=== PATIENT | female | born 1950 | race Caucasian/White ===

== ENCOUNTER 2024-11-06 08:51 | Outpatient (AMB) | payer OTHER, SELFPAY ==
--- NOTE | 2024-11-06 08:55 | A.OFFVIS_ITS ---
Intake Visit Reasons: follow up Allergies No Known Allergies Allergy (Verified 10/30/24 07:52) Medication List - Last Reconciled 11/06/24 by Jacki Prater MD citalopram 20 mg PO DAILY diltiazem HCl CD 180 mg PO DAILY levothyroxine mcg PO onabotulinumtoxinA (Botox) units IM HPI Comments Details: This is 73-year-old woman with a history of hypothyroidism, hypertension and anxiety disorder who started to develop spontaneous head turning to the right about 15 years ago. She was diagnosed about 10 years ago with cervical dystonia in [place]. She has been getting Botox injections 200 units every 3-4 months. Her last Botox was 07/07/24. She was under the care of Dr. Law who has retired. She's leaving for [place] next week for 5 months and will get her next Botox a with her and wants to schedule the subsequent Botox for September 2024 in this office. Prior authorization for the Botox will be obtained. Her only complication with Botox sometimes is dysphagia. [facility] Medical History (Updated 11/06/24 @ 08:58 by Jacki Prater MD) Cervical dystonia Review of Systems Const Details: Sleep:? Difficulty getting to sleep?denies.? Difficulty maintaining sleep?denies? .? Urge to move legs?denies.? Teeth grinding?denies.? Shouting or Kicking during sleep?denies.? Abnormal behavior during sleep?denies.? Excessive sleep?denies.? Snoring?denies.? Daytime sleepiness?denies.? ?? General/Constitutional:? Change in appetite?denies.? Chills?denies.? Fatigue?denies.? Fever?denies .? Weight gain?denies.? Weight loss?denies.? ?? Ophthalmologic:? Blurred vision?denies.? Diminished visual acuity?denies.? ?? ENT:? Stuffiness?denies.? Decreased hearing?denies.? Dry mouth?denies.? Ear pain?denies.? Nosebleed?denies.? Ringing in the ears?denies.? Sinus pain?denies .? Sore throat?denies.? Swollen glands?denies.? ?? Endocrine:? Cold intolerance?denies.? Excessive thirst?denies.? Frequent urination? denies.? Heat intolerance?denies.? ?? Respiratory:? Shortness of breath?denies.? Chest pain?denies.? Cough?denies.? ?? Breast:? Breast lump?denies.? Nipple discharge?denies.? ?? Cardiovascular:? Chest pain at rest?denies.? Chest pain with exertion?denies.? Claudication?denies.? Dizziness?denies.? Fluid accumulation in the legs?denies.? Irregular heartbeat?denies.? Palpitations?denies.? ?? Gastrointestinal:? Abdominal pain?denies.? Constipation?denies.? Diarrhea?denies.? Difficulty swallowing?denies.? Heartburn?denies.? Nausea?denies.? Rectal bleeding?denies.? ?? Hematology:? Easy bruising?denies.? Prolonged bleeding?denies.? ?? Genitourinary:? Frequent urination?denies.? Urgency?denies.? Incontinence?denies.? Erectile Dysfunction?denies.? ?? Musculoskeletal:? Neck pain?admits.? Back pain?denies.? Muscle aches?denies.? Painful joints?denies.? Sciatica?denies.? Weakness?denies.? ?? Podiatric:? Difficulty walking?denies.? Foot numbness?denies.? ?? Neurologic:? Difficulty swallowing?denies.? Balance difficulty?denies.? Coordination? normal.? Difficulty speaking?denies.? Dizziness?denies.? Fainting?denies.? Gait abnormality?denies.? Headache?denies.? Loss of strength?denies.? Loss of use of extremity?denies.? Low back pain?denies.? Memory loss?denies.? Seizures?denies.? Tics?denies.? Tingling/Numbness?denies.? Transient loss of vision?denies.? Tremor?denies.? ?? Psychiatric:? Anxiety?denies.? Auditory/visual hallucinations?denies.? Delusions?denies .? Depressed mood?denies.? Stressors?denies.? Substance abuse?denies.? Suicidal thoughts?denies.? ?? Physical Exam Neuro Other: Neurological: ? Abnormal neurological findings:?Her default neck position is with the head turned to the right with slight downward chin deviation.? She has restriction of flexion, extension and lateral rotation, particularly in turning her head to the left side.? There is no dystonic tremor..? Mental Status:?alert and oriented X 3,?Normal attention, orientation, memory and affect.? Cranial Nerves:?Pupils are equal, round and reactive to light. Fundoscopy shows normal disc bilaterally. External occular muscles are intact. Visual villeda are full, no ptosis. Face is symmetrical, no facial weakness or droop. Facial sensations are normal. Tongue protrudes in midline. Palate elevates symmetrically. Shoulder shrugging is normal..? Motor Examination:?Normal muscle tone, bulk and strength,?No atrophy or fasciculations,?No drift of the extended upper extremities,?Deep tendon reflexes are 2+?,?Plantars are flexor?.? Motor Strength:? Proximal Muscles (out of 5): ?5 ? Distal Muscles (out of 5): ?5 ? Neck Flexors (out of 5): ?5 ? Neck Extensors (out of 5): ?5 ? Deltoid (out of 5): ?5 ? Biceps (out of 5): ?5 ? Triceps (out of 5): ?5 ? Serratus Anterior (out of 5): ?5 ? Wrist Extensors (out of 5): ?5 ? APB (out of 5): ?5 ? Finger Spread (out of 5): ?5 ? Ileopsoas (out of 5): ?5 ? Quadriceps (out of 5): ?5 ? Hamstrings (out of 5): ?5 ? Tibialis Anterior (out of 5): ?5 ? Peronei (out of 5): ?5 ? EDB (out of 5): ?5 ? Gastrocnemius (out of 5): ?5 ? Straight Leg Raising:?90 degrees.? Sensory Exam:?Normal light touch, temperature, pinprick, vibration and joint-position sensations?,?Rhomberg sign is absent.? Coordination:?no ataxia,?no titubation,?dybkhi-ej-uply, [id number] test and rapid alternating movements were normal.? Gait Exam:?Within normal limits.? Cerebellar Signs:?Hmndyq-[id number] and apnk-ow-bfrv is normal,?no dysdiadochokinesia?.? Extrapyramidal System:?Focal dystonia of the cervical spine with head turning to the right . No tremor, rigidity with normal facial expressions,?No bradykinesia, no bradyphrenia. Normal arm swing and posture. No propulsion or retropulsion.? Speech:?Normal,?no dysphasia or dysarthria..? Mini Mental Status Exam: ? Level of Consciousness:?Alert.? Orientation:?Knows correct year, month, date, day and season,?Knows correct city, county and state. Knows correct location and floor.? Registration:?Able to register 3 objects.? Attention:?Serial 7's performed accurately.? Recall:?Able to recall 3 out of 3 objects.? Language:?Normal spontaneous speech, fluency, repetition,naming, comprehension, reading and writing.? Total Score:?30/30.? General Examination: ? GENERAL APPEARANCE:?normal,?in no acute distress.? HEAD:?normocephalic,?atraumatic.? EYES:?sclera non-icteric,?conjunctiva clear.? EARS:?auditory canal clear,?tympanic membrane intact, clear.? NOSE:?no lesions.? ORAL CAVITY:?gums normal,?mucosa moist,?no lesions.? THROAT:?clear.? NECK/THYROID:?no cervical lymphadenopathy,?thyroid normal,?neck supple, full range of motion,?no carotid bruit.? SKIN:?no rashes,?no significant birthmarks.? HEART:?S1, S2 normal,?no murmurs.? LUNGS:?clear anteriorly and posteriorly.? CHEST:?no gross rib deformity,?clear to auscultation.? BACK:?normal exam of spine.? EXTREMITIES:?no edema.? PERIPHERAL PULSES:?normal.? PSYCH:?alert, oriented,?cognitive function intact,?cooperative with exam.? 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
--- NOTE | 2024-11-06 09:21 | A.OFFVIS_ITS ---
Intake Visit Reasons: follow up Allergies No Known Allergies Allergy (Verified 10/30/24 07:52) Medication List - Last Reconciled 11/06/24 by Jacki Prater MD citalopram 20 mg PO DAILY diltiazem HCl CD 180 mg PO DAILY levothyroxine mcg PO onabotulinumtoxinA (Botox) units IM [facility] Medical History (Updated 11/06/24 @ 08:58 by Jacki Prater MD) Cervical dystonia Assessment & Plan Assessment & Plan (1) Cervical dystonia: Code(s): G24.3 - Spasmodic torticollis Category: Medical Plan Scedule for Botox inj with EMG guidance Medications: New onabotulinumtoxinA (Botox) 200 units IM .90 days 200 ea 0RF Coding Level of Care Code Est Pt Level 4 (56993) Diagnoses Cervical dystonia G24.3
--- OUTSIDE RECORDS SUMMARY | 2024-11-06 09:41 | XMS_ITS | Clinical Summary ---
Author Organization [facility] [address] [facility] Address [address] [place] [address] Phone Care Team Providers Care Clinic Charge Nurse Name Role Phone Edna Verma MD Primary Care Provider [phone] Allergies No known active allergies Medications glucosamine/chond roitin/C/Angelo (GLUCOSAMINE 1500 COMPLEX ORAL) Take by mouth daily. Active calcium carbonate-vitamin D (Oyster Shell Calcium-Vit D3) 500 mg-5 mcg (200 unit) per tablet Take by mouth daily. Active multivit-min/iron /folic acid/K (ADULTS MULTIVITAMIN ORAL) Take by mouth daily. Active BIOTIN ORAL Take by mouth daily. Active elderberry fruit 350 mg capsule Take by mouth. Active dilTIAZem CD (CARDIZEM CD) 180 mg 24 hr capsule TAKE 1 CAPSULE BY MOUTH DAILY 90 capsule 1 5 Active citalopram (CeleXA) 20 mg tablet TAKE 1 TABLET BY MOUTH DAILY 90 tablet 1 5 Active levothyroxine (SYNTHROID, LEVOTHROID) 75 mcg tablet TAKE 1 TABLET BY MOUTH ONCE A DAY TUESDAY THROUGH TUESDAY, THEN 2 TABLETS ON TUESDAY AND SUNDAYS 114 tablet 5 Active TURMERIC ORAL Take by mouth. Active Active Problems Problem Noted Date Diagnosed Date Anxiety 12/29/2023 Cervical dystonia 12/29/2023 Overview (12/29/2023): Gets botox injections with [facility] and a doctor in [place] (Dr. Austin in [place]) See medically for injections with Dr. Valdez Hypothyroidism 12/29/2023 Assessment & Plan (02/09/2024 10:47 AM EST): Orders: Thyroid stimulating hormone with reflex to free t4 and free t3; Future Continue with levothyroxine, repeat TSH Essential hypertension 12/08/2017 Assessment & Plan (02/09/2024 10:47 AM EST): Orders: Comprehensive metabolic panel; Future Continue with diltiazem Macrocytosis without anemia 08/31/2017 Assessment & Plan (02/09/2024 10:47 AM EST): Orders: CBC and differential; Future Rosacea 02/04/2017 Scoliosis 01/18/2017 Encounters Date Type Department Care Team Description 09/27/2024 11:29 AM EDT - 09/27/2024 11:59 PM EDT Hospital Encounter XRAY - [address] [phone] H/O: pneumonia Discharge Disposition: Home or Self Care 09/27/2024 10:30 AM EDT Office Visit Adult Medicine [facility] - [address] [phone] Edna Verma MD H/O: pneumonia (Primary Dx); Essential hypertension; Anxiety; Acquired hypothyroidism 08/29/2024 12:19 PM EDT - 08/29/2024 11:59 PM EDT Hospital Encounter Radiology Department - [address] [phone] Encounter for screening mammogram for breast cancer Discharge Disposition: Home or Self Care from Last 3 Months Immunizations Name Administration Dates Next Due Influenza trivalent, 0.5mL ( Fluad) 65yo and older 12/06/2023 Influenza trivalent, 0.5mL ( Fluzone High-dose) 65yo and older 12/08/2022,12/04/2020,12/05/2018 Influenza trivalent, with pr eservative (Fluzone; Afluria) 6mo and older 12/05/2017 Influenza, Unspecified 12/09/2021,12/03/2016 Pfizer SARS-CoV-2 COVID-19, mRNA, LNP-S, preservative free 12/08/2022,12/09/2021,06/24/2021,12/21,05/29/2020,05/07/2020 Pneumococcal conjugate 13 va lent (Prevnar 13, PCV13) 2mo and older 08/23/2014 Pneumococcal polysaccharide 23 valent (Pneumovax 23) 2yo and older 03/01/2022,12/29/2015 Tdap Tetanus diptheria acell ular pertussis (Boostrix; Adacel) 7yo and older 06/02/2022,08/18/2012 Surgical History Surgery Date Site/Laterality Comments KNEE ARTHROSCOPY 2009 Right PROCEDURE: AK ARTHROSCOPY KNEE DIAGNOSTIC W/WO SYNOVIAL BX SPX COLONOSCOPY 04/12/2013 PROCEDURE: HISTORICAL COLONOSCOPY FINE NEEDLE ASPIRATION PROCEDURE: FINE NDLE ASPRTN W/IMAGING GUIDANCE; COMMENT: lt cyst Medical History Medical History Date Comments Hypothyroidism DX:Hypothyroidis m Cervical dystonia DX:Cervical dy stonia Anxiety DX:Anxiety Rosacea 02/04/2017 DX:Rosacea Arthritis Hypertension Family History Medical History Relation Name Comments Arthritis Mother Lavern Cox Breast cancer Other mat aunt Arthritis Sister 1 Claudia Chacon Diabetes Sister 1 Claudia Chacon 2 sisters wit h diabetes; 1 with [place] Lung cancer Sister 1 Claudia Chacon Arthritis Sister 2 Radha Alex Diabetes Sister 2 Radha Gueydan Colon cancer Neg Hx Heart attack Neg Hx Ovarian cancer Neg Hx Pancreatic cancer Neg Hx Prostate cancer Neg Hx Stroke Neg Hx Uterine cancer Neg Hx Relation Name Status Comments Mother Lavern Cox Other mat aunt Sister 1 Claudia Chacon Sister 2 Radha Johnson Social History Tobacco Use Types Packs/Day Years Used Date Smoking Tobacco: Former Cigarettes Q uit: 03/21/2001 Smokeless Tobacco: Never Tobacco Cessation:Counseling Given: Not Answered Alcohol Use Standard Drinks/Week Comments Yes 1 (1 standard drink = 0.6 oz pur e alcohol) Housing Instability Answer Date Recorde d Are you worried that in the next 2 months you may not have stable housing? No 02/07/2024 Food Access & Nutrition Answer Date Rec orded Do you have access to a vari ety of food including fruits and vegetables? Yes 02/07/2024 Access to Healthcare Answer Date Record ed Within the last 3 months, ho w many times did you visit the emergency department for your medical care? 0 02/07/2024 Health Literacy Answer Date Recorded How often do you need to hav e someone help you when you read instructions, pamphlets, or other written material from your doctor or pharmacy? Never 02/07/2024 Caregiver: How often do you need to have someone help you when you read instructions, pamphlets, or other written material from your doctor or pharmacy? Not on file 02/07/2024 Financial Risk Answer Date Recorded How hard is it for you to pa y for the very basics like food, housing, medical care, and air conditioning / heating? Not very hard 02/07/2024 Transportation Answer Date Recorded Has the lack of transportati on kept you from meetings, work, or from getting things needed for daily living? No Has the lack of transportati on kept you from medical appointments or from getting medications? No 02/07/2024 Social Isolation Answer Date Recorded How often do you feel lonely or isolated from th ose around you? Never 02/07/2024 Food Risk Answer Date Recorded Within the past 12 months we worried whether our food would run out before we got money to buy more. Never true 02/07/2024 Within the past 12 months th e food we bought just didn't last and we didn't have money to get more. Never true 02/07/2024 Dependent Care Answer Date Recorded Do you need help finding or paying for care for your loved ones. For example, child psychiatrist or elderly care for an older adult? No 02/07/2024 Education Answer Date Recorded Do you think completing more education or training, like finishing a GED, going to college, or learning a trade, would be helpful for you? No 02/07/2024 Employment and Income Answer Date Recor ded During the last four weeks, have you been actively looking for work? No 02/07/2024 Living Situation Answer Date Recorded What is your living situation? 1 04/08/2023 Comments No Sex and Gender Information Value Date Recorded Sex Assigned at Female 04/27/2024 2:42 PM EST Legal Sex Female 10:38 AM EST Gender Identity Female 04/27/2024 2:42 PM EST Sexual Orientation Not on file Obstetrics History Para Term AB IAB SAB Ectopic Multiple Livin g Live Births 1 1 1 1 Date Outcome GA Total Labor Labor/2nd/3rd Weight Sex Type Anes PTL Genesis A1 A5 Name Clin Term Last Filed Vital Signs Vital Sign Reading Time Taken Comments Blood Pressure 124/68 09/27/2024 10:40 AM EDT Pulse 72 09/27/2024 10:40 AM EDT Temperature 36.6 C (97.8 F) 09/27/2024 10:40 AM EDT Respiratory Rate 14 09/27/2024 10:40 AM EDT Oxygen Saturation 98% 09/27/2024 10:40 AM EDT Inhaled Oxygen Concentration - - Weight 64.9 kg (143 lb) 09/27/2024 10:40 AM EDT Height 154.9 cm (5' 1 ) 09/27/2024 10:40 AM EDT Body Mass Index 27.02 09/27/2024 10:40 AM EDT Plan of Treatment Upcoming Encounters Date Type Department Care Team (Late st Contact Info) Description 03/26/2025 8:00 AM EST Office Visit Adult Medicine [address] [phone] Edna Verma MD [address] [place] [id number] Health Maintenance Due Date Last Done Comments Zoster Vaccines (2 of 3) 10/17/2013 08/22/2013 COVID-19 Vaccine ( season) 2024 12/06/2023, 12/13/2022, 12/08/2022, Additional history exists Colorectal Cancer Screening: Stool Based Tests (FOBT/FIT) 11/03/2024 11/04/2023 Influenza Vaccine (#1) 2024 , 05/03/2023, 12/08/2022, Additional history exists Social Influencers of Health Screening 02/06/2025 02/07/2024 Medicare Annual Wellness Visit 02/08/2025 02/09/2024 Hypertension/CHF/CAD Annual BMP Blood Test 09/04/2025 09/04/2024, 02/10/2024, 08/12/2023, Additional history exists Falls Risk Assessment 09/27/2025 09/27/2024, 024 Osteoporosis Screening (Bone Density Screening) 01/16/2026 01/17/2024, 01/17/2024, 03/19/2020, Additional history exists Breast Cancer Screening 08/29/2026 08/30/19 25, 08/19/2023, 08/19/2023, Additional history exists RSV Immunization Adult Patients (1 - 1-dose 75+ series) 12/26/2026 Colorectal Cancer Screening: FIT-DNA (Cologuard) 09/28/2027 09/27/2024, 09/27/2024 Cholesterol Screening (Lipid Panel) 09/04/2029 09/04/2024, 02/10/2024, 08/12/2023, Additional history exists DTaP,Tdap,and Td Vaccines (3 - Td or Tdap) 06/02/2032 06/02/2022, 08/18/2012 Hepatitis C Screening Completed 12/31/2020 Pneumococcal Vaccine: 50+ Years Completed 03/01/2022, 12/29/2015, 08/23/2014 Depression Screening Completed 09/20/2024 HIB Vaccines Aged Out No longer eligi ble based on patient's age to complete this topic HPV Vaccines Aged Out No longer eligi ble based on patient's age to complete this topic Hepatitis A Vaccines Aged Out No long er eligible based on patient's age to complete this topic Hepatitis B Vaccines Aged Out No long er eligible based on patient's age to complete this topic IPV Vaccines Aged Out No longer eligi ble based on patient's age to complete this topic MMR Vaccines Aged Out No longer eligi ble based on patient's age to complete this topic Meningococcal ACWY Vaccine Aged Out N o longer eligible based on patient's age to complete this topic Meningococcal B Vaccine Aged Out No l onger eligible based on patient's age to complete this topic RSV Immunization Patients Under 20 months Aged Out No longer eligible based on patient's age to complete this topic Varicella Vaccines Aged Out No longer eligible based on patient's age to complete this topic Procedures Procedure Name Priority Date/Time Associated Diagnosis Comments XR CHEST 2 VIEWS Routine 09/27/2024 11:3 8 AM EDT H/O: pneumonia CBC WITH AUTO DIFFERENTIAL Routine 09/04/2024 8:57 AM EDT Essential hypertension COMPREHENSIVE METABOLIC PANEL Routine 09/04/2024 8:57 AM EDT Essential hypertension CBC AND DIFFERENTIAL Routine 09/04/2024 8:57 AM EDT Essential hypertension LIPID PANEL WITH REFLEX TO DIRECT LDL Routine 09/04/2024 8:57 AM EDT Essential hypertension THYROID STIMULATING HORMONE WITH REFLEX TO FREE T4 AND FREE T3 Routine 09/04/2024 8:57 AM EDT Acquired hypothyroidism MG MAMMO DIGITAL SCREENING W BRAEDEN BILAT Routine 08/29/2024 1:14 PM EDT Encounter for screening mammogram for breast cancer DXA BONE DENSITY STUDY 1+ SITS AXIAL SKEL Routine 01/17/2024 10:30 AM EDT Encounter for screening for osteoporosis HM STOOL BASED TEST Routine 11/04/2023 HEPATITIS C SCREENING Routine 12/31/2020 from Last 3 Months or Most Recently Relevant to Health Maintenance Results * XR Chest 2 Views (09/27/2024 11:38 AM EDT) Anatomical Region Laterality Modality Body Radiographic Zenaida ging 09/27/2024 5:42 PM EDT Impressions 09/27/2024 5:43 PM EDT Linear airspace opacities within the left lower lung zone. This could represent residual pneumonia versus atelectasis/fibrosis. -------- FINAL REPORT -------- Dictated By: Beronica Billings Dictated Date: 09/27/2024 17:42 ET Assigned Physician: Beronica Billings Reviewed and Electronically Signed By: Beronica Billings Signed Date: 09/27/2024 17:43 ET Workstation ID: [id number] Transcribed By: Self Edit Transcribed Date: 09/27/2024 17:42 ET Narrative 09/27/2024 5:43 PM EDT HISTORY: Pneumonia/ Bronchitis 1 month ago , looking for resolution TECHNIQUE: PA and lateral radiographs of the chest COMPARISON: None FINDINGS: There is a normal cardiomediastinal silhouette. Atherosclerosis of the thoracic aorta. Linear airspace opacities within the left lower lung zone. Severe degenerative changes of the thoracic spine. Procedure Note Beronica Billings MD - 09/27/2024 HISTORY: Pneumonia/ Bronchitis 1 month ago , looking for resolution TECHNIQUE: PA and lateral radiographs of the chest COMPARISON: None FINDINGS: There is a normal cardiomediastinal silhouette. Atherosclerosis of thethoracic aorta. Linear airspace opacities within the left lower lung zone.Severe degenerative changes of the thoracic spine. IMPRESSION: Linear airspace opacities within the left lower lung zone. This couldrepresent residual pneumonia versus atelectasis/fibrosis. -------- FINAL REPORT -------- Dictated By: Beronica Billings Dictated Date: 09/27/2024 17:42 ET Assigned Physician: Beronica Billings Reviewed and Electronically Signed By: Beronica Billings Signed Date: 09/27/2024 17:43 ET Workstation ID: [id number] Transcribed By: Self Edit Transcribed Date: 09/27/2024 17:42 ET us Edna Verma MD IMG XR PROCEDURES Final Result * Thyroid stimulating hormone with reflex to free t4 and free t3 (09/04/2024 8:57 AM EDT) TSH 0.75 0.40 - 4.00 mcIU/mL LAB CHEMISTRY METHOD 09/04/2024 2:44 PM EDT [facility] Blood Venous blood specimen / Unknown Venipuncture / Unknown 09/04/2024 8:57 AM EDT 09/04/2024 8:57 AM EDT us Edna Verma MD LAB BLOOD ORDERABLES Final Resul t [facility] [address] [place] [address], [place] [phone] * Lipid panel with reflex to direct LDL (09/04/2024 8:57 AM EDT) Cholesterol 189 0 - 200 mg/dL LAB CHEMISTRY METHOD 09/04/2024 2:04 PM EDT [facility] Triglycerides 72 0 - 150 mg/dL LAB CHEMISTRY METHOD 09/04/2024 2:04 PM EDT [facility] HDL 75 >=40 mg/dL LAB CHEMISTRY METHOD 09/04/2024 2:04 PM EDT [facility] LDL Calculated 100 0 - 100 mg/dL LAB CHEMISTRY METHOD 09/04/2024 2:04 PM EDT [facility] VLDL Cholesterol [place] 14.4 mg/dL LAB CHEMISTRY METHOD 09/04/2024 2:04 PM EDT [facility] Non HDL Chol. (LDL+VLDL) 114 <145 mg/dL LAB CHEMISTRY METHOD 09/04/2024 2:04 PM EDT [facility] Chol/HDL Ratio 2.5 0.0 - 4.4 LAB CHEMISTRY METHOD 09/04/2024 2:04 PM EDT [facility] Blood Venous blood specimen / Unknown Venipuncture / Unknown 09/04/2024 8:57 AM EDT 09/04/2024 8:57 AM EDT us Edna Verma MD LAB BLOOD ORDERABLES Final Resul t [facility] [address] [place] [address], [place] [phone] * (ABNORMAL) CBC auto differential (09/04/2024 8:57 AM EDT) Pathologist [facility] WBC 6.1 4.8 - 10.8 K/mcL LAB HEMETOLOGY METHOD 09/04/2024 10:54 AM [facility] RBC 4.60 3.80 - 4.80 M/mcL LAB HEMETOLOGY METHOD 09/04/2024 10:54 AM [facility] Hemoglobin 14.5 11.5 - 16.0 g/dL LAB HEMETOLOGY METHOD 09/04/2024 10:54 AM [facility] Hematocrit 45.2 35.0 - 47.0 % LAB HEMETOLOGY METHOD 09/04/2024 10:54 AM [facility] MCV 98.9(H) 79.0 - 98.0 FL LAB HEMETOLOGY METHOD 09/04/2024 10:54 AM [facility] MCH 31.7 27.0 - 32.0 pcg LAB HEMETOLOGY METHOD 09/04/2024 10:54 AM [facility] MCHC 32.1 32.0 - 37.0 g/dL LAB HEMETOLOGY METHOD 09/04/2024 10:54 AM [facility] RDW 13.3 11.0 - 15.0 % LAB HEMETOLOGY METHOD 09/04/2024 10:54 AM [facility] Platelets 300 130 - 400 K/mcL LAB HEMETOLOGY METHOD 09/04/2024 10:54 AM [facility] MPV 9.8 7.0 - 11.0 FL LAB HEMETOLOGY METHOD 09/04/2024 10:54 AM [facility] NRBC 0.0 <1.0 % LAB HEMETOLOGY METHOD 09/04/2024 10:54 AM [facility] NRBC Absolute 0.00 <0.10 K/mcL LAB HEMETOLOGY METHOD 09/04/2024 10:54 AM [facility] Neutrophils Relative 57.1 % LAB HEMETOLOGY METHOD 09/04/2024 10:54 AM [facility] Lymphocytes Relative 23.3 % LAB HEMETOLOGY METHOD 09/04/2024 10:54 AM [facility] Monocytes Relative 9.4 % LAB HEMETOLOGY METHOD 09/04/2024 10:54 AM [facility] Eosinophils Relative 9.0 % LAB HEMETOLOGY METHOD 09/04/2024 10:54 AM [facility] Basophils Relative 1.0 % LAB HEMETOLOGY METHOD 09/04/2024 10:54 AM [facility] Immature Granulocytes Relative 0.2 % LAB HEMETOLOGY METHOD 09/04/2024 10:54 AM [facility] Neutrophils Absolute 3.51 1.50 - 7.00 K/mcL LAB HEMETOLOGY METHOD 09/04/2024 10:54 AM [facility] Lymphocytes Absolute 1.43 1.00 - 5.00 K/mcL LAB HEMETOLOGY METHOD 09/04/2024 10:54 AM [facility] Monocytes Absolute 0.58 0.20 - 1.00 K/mcL LAB HEMETOLOGY METHOD 09/04/2024 10:54 AM [facility] Eosinophils Absolute 0.55(H) 0.00 - 0.50 K/mcL LAB HEMETOLOGY METHOD 09/04/2024 10:54 AM [facility] Basophils Absolute 0.06 0.00 - 0.20 K/mcL LAB HEMETOLOGY METHOD 09/04/2024 10:54 AM [facility] Immature Granulocytes Absolute 0.01 0.00 - 0.03 K/mcL LAB HEMETOLOGY METHOD 09/04/2024 10:54 AM [facility] Blood Venous blood specimen / Unknown Venipuncture / Unknown 09/04/2024 8:57 AM EDT 09/04/2024 8:57 AM EDT us Edna Verma MD LAB BLOOD ORDERABLES Final Resul t [facility] [address] [place] [address], [place] [phone] * Comprehensive metabolic panel (09/04/2024 8:57 AM EDT) Sodium 141 133 - 145 mmol/L LAB CHEMISTRY METHOD 09/04/2024 2:04 PM [facility] Potassium 4.3 3.5 - 5.5 mmol/L LAB CHEMISTRY METHOD 09/04/2024 2:04 PM [facility] Chloride 108 96 - 110 mmol/L LAB CHEMISTRY METHOD 09/04/2024 2:04 PM [facility] CO2 28 21 - 32 mmol/L LAB CHEMISTRY METHOD 09/04/2024 2:04 PM [facility] Anion Gap 5 3 - 11 LAB CHEMISTRY METHOD 09/04/2024 2:04 PM [facility] Glucose 87 70 - 100 mg/dL LAB CHEMISTRY METHOD 09/04/2024 2:04 PM [facility] BUN 12 5 - 25 mg/dL LAB CHEMISTRY METHOD 09/04/2024 2:04 PM [facility] Creatinine 0.66 0.50 - 1.10 mg/dL LAB CHEMISTRY METHOD 09/04/2024 2:04 PM [facility] eGFR 93 >=60 mL/min/1. 73m2 LAB CHEMISTRY METHOD 09/04/2024 2:04 PM [facility] Comment:Calculation based on the Chronic Kidney Disease Epidemiology Collaboration (CKD-EPI) equation refit without adjustment for race. BUN/Creatinine Ratio 18.2 LAB CHEMISTRY METHOD 09/04/2024 2:04 PM [facility] Calcium 9.5 8.5 - 10.5 mg/dL LAB CHEMISTRY METHOD 09/04/2024 2:04 PM EDT [facility] AST (SGOT) 21 10 - 42 unit/L LAB CHEMISTRY METHOD 09/04/2024 2:04 PM EDT [facility] ALT (SGPT) 26 10 - 60 unit/L LAB CHEMISTRY METHOD 09/04/2024 2:04 PM EDT [facility] Alkaline Phosphatase 81 42 - 121 unit/L LAB CHEMISTRY METHOD 09/04/2024 2:04 PM EDT [facility] Total Protein 7.0 6.0 - 8.0 g/dL LAB CHEMISTRY METHOD 09/04/2024 2:04 PM EDT [facility] Albumin 4.0 3.2 - 5.0 g/dL LAB CHEMISTRY METHOD 09/04/2024 2:04 PM EDT [facility] Total Bilirubin 0.8 0.0 - 1.4 mg/dL LAB CHEMISTRY METHOD 09/04/2024 2:04 PM EDT [facility] Blood Venous blood specimen / Unknown Venipuncture / Unknown 09/04/2024 8:57 AM EDT 09/04/2024 8:57 AM EDT us Edna Verma MD LAB BLOOD ORDERABLES Final Resul t [facility] [address] [place] [address], [place] [phone] * MG Mammo Digital Screening w Braeedn bilat (08/29/2024 1:14 PM EDT) Anatomical Region Laterality Modality Breast Bilateral Mammography 08/30/2024 7:53 AM EDT Impressions 08/30/2024 7:57 AM EDT Benign. BI-RADS CATEGORY: 1 - NEGATIVE RECOMMENDATION: Screening bilateral mammogram is recommended in 1 year. Mammo Location: [facility], [address] [place] [address], [id number], . -------- FINAL REPORT -------- Dictated By: Mary Guevara Dictated Date: 08/30/2024 07:53 ET Assigned Physician: Mary Guevara Reviewed and Electronically Signed By: Mary Guevara Signed Date: 08/30/2024 07:57 ET Workstation ID: [id number] Transcribed By: Self Edit Transcribed Date: 08/30/2024 07:53 ET Narrative 08/30/2024 7:57 AM EDT CLINICAL: 73 years old, Female, routine annual exam. COMPARISON: Mammograms dating back to 01/08/2015 the most recent of 08/19/2023. TECHNIQUE: Bilateral MLO and CC views were obtained digitally with 3-D mammogram (digital breast tomosynthesis). Computer-aided detection was utilized in evaluation of this exam (CAD). FINDINGS: There is no evidence of suspicious mass or architectural distortion. No worrisome calcifications are evident. There has been no significant change from prior exam(s). BREAST DENSITY: B - There are scattered areas of fibroglandular density. Procedure Note Mary Guevara MD - 08/30/2024 CLINICAL: 73 years old, Female, routine annual exam. COMPARISON: Mammograms dating back to 01/08/2015 the most recent of08/19/2023. TECHNIQUE: Bilateral MLO and CC views were obtained digitally with 3-Dmammogram (digital breast tomosynthesis). Computer-aided detection wasutilized in evaluation of this exam (CAD). FINDINGS: There is no evidence of suspicious mass or architectural distortion. Noworrisome calcifications are evident. There has been no significantchange from prior exam(s). BREAST DENSITY: B - There are scattered areas of fibroglandular density. IMPRESSION: Benign. BI-RADS CATEGORY: 1 - NEGATIVE RECOMMENDATION: Screening bilateral mammogram is recommended in 1 year. Mammo Location: [facility], [address] [place] [address], [id number], . -------- FINAL REPORT -------- Dictated By: Mary Guevara Dictated Date: 08/30/2024 07:53 ET Assigned Physician: Mary Guevara Reviewed and Electronically Signed By: Mary Guevara Signed Date: 08/30/2024 07:57 ET Workstation ID: [id number] Transcribed By: Self Edit Transcribed Date: 08/30/2024 07:53 ET us Edna Verma MD IMG BI PROCEDURES Final Result * DXA BONE DENSITY STUDY 1+ SITS AXIAL SKEL (01/17/2024 10:30 AM EDT) Anatomical Region Laterality Modality Bone Densitometr y 02/11/2023 9:50 AM EST Narrative 01/17/2024 7:53 PM EDT Clinical history: other osteoporosis Scans of the lumbar spine and hips were performed on a [employer] (formerly known as [employer])/[place] fan beam bone densitometer. Bone mineral density measurements and associated T and Z scores respectively are as follows: Lumbar Spine: L1-L4 BMD: 1.164 g/cm2 T-Score: 1.1 Z-Score: 3.3 Compared with the prior study dated 03/19/2020, the BMD reading has decreased which is not statistically significant Left Proximal Femur: Neck BMD: 0.702 g/cm2 T-Score: -1.3 Z-Score: 0.6 Total BMD: 1.022 g/cm2 T-Score: 0.7 Z-Score: 2.3 Compared with the prior study the mean BMD reading in the total left hip has increased which is not statistically significant Compared with standards for the young adult, lowest measured bone density places the patient in the W.H.O. osteopenic range. FRAX 10 year probability of major osteoporotic fracture: 9.9% FRAX 10 year probability of hip fracture: 1.4% Population: [place] () IMPRESSION: IMPRESSION: Osteopenia. The NOF guidelines recommend that FDA approved medical therapies be considered in postmenopausal women and men age >50 years with a: i. Hip or vertebral (clinical or morphometric) fracture ii. T score of < -2.5 at the spine or hip iii. 10 year fracture probability by FRAX of >3% for hip fracture, or >20% for major osteoporotic fracture PLEASE NOTE: W.H.O. classification is based on lowest measured density at the spine, femoral neck, or total hip.This classification has prognostic significance when applied to post menopausal women and older men. 1) The World Health Organization defines low BMD as follows: T-score Normal at or > -1 Osteopenia < -1 and > -2.5 Osteoporosis at or < -2.5 without fractures Established osteoporosis < -2.5 with fractures Procedure Note Beronica Billings MD - 01/21/2024 Clinical history: other osteoporosis Scans of the lumbar spine and hips were performed on a [employer] beam bone densitometer. Bone mineral density measurements and associated T and Z scoresrespectively are as follows: Lumbar Spine: L1-L4 BMD: 1.164 g/cm2 T-Score: 1.1 Z-Score: 3.3 Compared with the prior study dated 03/19/2020, the BMD reading hasdecreased which is not statistically significant Left Proximal Femur: Neck BMD: 0.702 g/cm2 T-Score: -1.3 Z-Score: 0.6 Total BMD: 1.022 g/cm2 T-Score: 0.7 Z-Score: 2.3 Compared with the prior study the mean BMD reading in the total left hiphas increased which is not statistically significant Compared with standards for the young adult, lowest measured bone densityplaces the patient in the W.H.O. osteopenic range. FRAX 10 year probability of major osteoporotic fracture: 9.9% FRAX 10 year probability of hip fracture: 1.4% Population: [place] () IMPRESSION: IMPRESSION: Osteopenia. The NOF guidelines recommend that FDA approved medical therapies beconsidered in postmenopausal women and men age >50 years with a: i. Hip or vertebral (clinical or morphometric) fracture ii. T score of < -2.5 at the spine or hip iii. 10 year fracture probability by FRAX of >3% for hip fracture, or >20%for major osteoporotic fracture PLEASE NOTE: W.H.O. classification is based on lowest measured density at the spine,femoral neck, or total hip.This classification has prognostic significance when applied to postmenopausal women and older men. 1) The World Health Organization defines low BMD as follows: T-score Normal at or > -1 Osteopenia < -1 and > -2.5 Osteoporosis at or < -2.5 withoutfractures Established osteoporosis < -2.5 with fractures Edna Verma MD IMG DXA PROCEDURES Final Result * Stool Based Tests (FOBT/FIT) (11/04/2023) [facility] Colorectal Cancer Screening: Stool Based Tests No interpretation , Abstracted Historical Provider HEALTH MAINTENANCE Final Result * Hepatitis C Screening (12/31/2020) [facility] Hepatitis C Screening Abstracted Historical Provider HEALTH MAINTENANCE Final Result from Last 3 Months or Most Recently Relevant to Health Maintenance Insurance [employer] [address] Care Teams Clinic Charge Nurse Relationship Specialty Start Date End Date Edna Verma MD [address] [place] [phone] PCP - General Internal Medicine 08/29/24
== END 2024-11-06 10:20 | disposition home or self-care (01) ==
LOC: HO.HSM 08:52
PROVIDERS: PCP Internal Medicine; Referring Provider Internal Medicine; Visit Provider Psychiatry & Neurology Neurology
DX: G24.3 Spasmodic torticollis (principal)
CPT/HCPCS: 99214

== ENCOUNTER 2024-11-14 14:41 | Outpatient (REF) | payer OTHER, SELFPAY ==
--- NOTE | 2024-11-14 | EMG_ITS ---
Botulinum toxin for Torticollis:? Consent:?After informed consent was obtained explaining risks, benefits, side-effects and alternatives, under aseptic precautions, the following areas were prepped and injected according to the following protocol.? Prep:? 200 units Botulinum Toxin lot number [id number]. Expiration 3. Serial number (12) [id number] was reconstituted in the usual manner with preservative-free normal saline.? Muscles & Units Injected:?160 units botox injected in 3 sites in left SCM ( 3x20),?20 units in the left levator scapulae, 20 units in the left trapezius, 30 units in the right splenius capitis and 10 units right trapezius.? Post-Procedure:?The patient tolerated the procedure well. There was no blood loss or adverse effect. The patient will make a follow-up appointment in 3-4 weeks.? SARAID
--- OUTSIDE RECORDS SUMMARY | 2024-11-14 16:02 | XMS_ITS | Clinical Summary ---
Author Organization [facility] [address] [facility] Address [address] [place] [address] Phone Care Team Providers Care Flanging Roll Operator Name Role Phone Edna Verma MD Primary Care Provider [phone] Allergies No known active allergies Medications glucosamine/chond [...] 12/29/2023 Overview (12/29/2023): Gets botox injections with [facility] and a doctor in [place] (Dr. Austin in [place]) See medically for injections with Dr. Valdez [...] 11:59 PM EDT Hospital Encounter XRAY - [address] [phone] H/O: pneumonia Discharge Disposition: Home or Self Care 09/27/2024 10:30 AM EDT Office Visit [facility] - [address] [phone] Edna Verma MD H/O: pneumonia (Primary Dx); Essential hypertension; Anxiety; Acquired hypothyroidism 08/29/2024 12:19 PM EDT - 08/29/2024 11:59 PM EDT Hospital Encounter Radiology Department - [address] [phone] Encounter for screening mammogram for breast cancer [...] Site/Laterality Comments KNEE ARTHROSCOPY 2009 Right PROCEDURE: MD ARTHROSCOPY KNEE DIAGNOSTIC W/WO SYNOVIAL BX SPX [...] cancer Other mat aunt Arthritis Sister 1 lCaudia Chacon Diabetes Sister 1 Claudia Chacon 2 sisters wit h diabetes; 1 with [place] Lung cancer Sister 1 Claudia Chacon Arthritis Sister 2 Radha Alex Diabetes Sister 2 Radha [place] Colon cancer Neg Hx Heart attack Neg [...] care for your loved ones. For example, assistant child care teacher or elderly care for an older adult? [...] 8:00 AM EST Office Visit Adult Medicine [address] [phone] Edna Verma MD [address] [place] [phone] Health Maintenance Due Date Last Done Comments [...] Signed Date: 09/27/2024 17:43 ET Workstation ID: [id number] Transcribed By: Self Edit Transcribed Date: 09/27/2024 [...] Signed Date: 09/27/2024 17:43 ET Workstation ID: [id number] Transcribed By: Self Edit Transcribed Date: 09/27/2024 17:42 ET us Edna Verma MD IMG XR PROCEDURES Final Result * Thyroid stimulating hormone with reflex to free t4 and free t3 (09/04/2024 8:57 AM EDT) TSH 0.75 0.40 - 4.00 mcIU/mL LAB CHEMISTRY METHOD 09/04/2024 2:44 PM EDT [facility] Blood Venous blood specimen / Unknown Venipuncture / Unknown 09/04/2024 8:57 AM EDT 09/04/2024 8:57 AM EDT us Edna Verma MD LAB BLOOD ORDERABLES Final Resul t [facility] [address] [place] [address], [place] [phone] * Lipid panel with reflex to direct LDL (09/04/2024 8:57 AM EDT) Cholesterol 189 0 - 200 mg/dL LAB CHEMISTRY METHOD 09/04/2024 2:04 PM EDT [facility] Triglycerides 72 0 - 150 mg/dL LAB CHEMISTRY METHOD 09/04/2024 2:04 PM EDT [facility] HDL 75 >=40 mg/dL LAB CHEMISTRY METHOD 09/04/2024 2:04 PM EDT [facility] LDL Calculated 100 0 - 100 mg/dL LAB CHEMISTRY METHOD 09/04/2024 2:04 PM EDT [facility] VLDL Cholesterol [place] 14.4 mg/dL LAB CHEMISTRY METHOD 09/04/2024 2:04 PM EDT [facility] Non HDL Chol. (LDL+VLDL) 114 <145 mg/dL LAB CHEMISTRY METHOD 09/04/2024 2:04 PM EDT [facility] Chol/HDL Ratio 2.5 0.0 - 4.4 LAB CHEMISTRY METHOD 09/04/2024 2:04 PM EDT [facility] Blood Venous blood specimen / Unknown Venipuncture / Unknown 09/04/2024 8:57 AM EDT 09/04/2024 8:57 AM EDT us Edna Verma MD LAB BLOOD ORDERABLES Final Resul t [facility] [address] [place] [address], [place] [phone] * (ABNORMAL) CBC auto differential (09/04/2024 8:57 AM EDT) Pathologist [facility] WBC 6.1 4.8 - 10.8 K/mcL LAB HEMETOLOGY METHOD 09/04/2024 10:54 AM [facility] RBC 4.60 3.80 - 4.80 M/mcL LAB HEMETOLOGY METHOD 09/04/2024 10:54 AM [facility] Hemoglobin 14.5 11.5 - 16.0 g/dL LAB HEMETOLOGY METHOD 09/04/2024 10:54 AM [facility] Hematocrit 45.2 35.0 - 47.0 % LAB HEMETOLOGY METHOD 09/04/2024 10:54 AM [facility] MCV 98.9(H) 79.0 - 98.0 FL LAB HEMETOLOGY METHOD 09/04/2024 10:54 AM [facility] MCH 31.7 27.0 - 32.0 pcg LAB HEMETOLOGY METHOD 09/04/2024 10:54 AM [facility] MCHC 32.1 32.0 - 37.0 g/dL LAB HEMETOLOGY METHOD 09/04/2024 10:54 AM [facility] RDW 13.3 11.0 - 15.0 % LAB HEMETOLOGY METHOD 09/04/2024 10:54 AM [facility] Platelets 300 130 - 400 K/mcL LAB HEMETOLOGY METHOD 09/04/2024 10:54 AM [facility] MPV 9.8 7.0 - 11.0 FL LAB HEMETOLOGY METHOD 09/04/2024 10:54 AM [facility] NRBC 0.0 <1.0 % LAB HEMETOLOGY METHOD 09/04/2024 10:54 AM [facility] NRBC Absolute 0.00 <0.10 K/mcL LAB HEMETOLOGY METHOD 09/04/2024 10:54 AM [facility] Neutrophils Relative 57.1 % LAB HEMETOLOGY METHOD 09/04/2024 10:54 AM [facility] Lymphocytes Relative 23.3 % LAB HEMETOLOGY METHOD 09/04/2024 10:54 AM [facility] Monocytes Relative 9.4 % LAB HEMETOLOGY METHOD 09/04/2024 10:54 AM [facility] Eosinophils Relative 9.0 % LAB HEMETOLOGY METHOD 09/04/2024 10:54 AM [facility] Basophils Relative 1.0 % LAB HEMETOLOGY METHOD 09/04/2024 10:54 AM [facility] Immature Granulocytes Relative 0.2 % LAB HEMETOLOGY METHOD 09/04/2024 10:54 AM [facility] Neutrophils Absolute 3.51 1.50 - 7.00 K/mcL LAB HEMETOLOGY METHOD 09/04/2024 10:54 AM [facility] Lymphocytes Absolute 1.43 1.00 - 5.00 K/mcL LAB HEMETOLOGY METHOD 09/04/2024 10:54 AM [facility] Monocytes Absolute 0.58 0.20 - 1.00 K/mcL LAB HEMETOLOGY METHOD 09/04/2024 10:54 AM [facility] Eosinophils Absolute 0.55(H) 0.00 - 0.50 K/mcL LAB HEMETOLOGY METHOD 09/04/2024 10:54 AM [facility] Basophils Absolute 0.06 0.00 - 0.20 K/mcL LAB HEMETOLOGY METHOD 09/04/2024 10:54 AM [facility] Immature Granulocytes Absolute 0.01 0.00 - 0.03 K/mcL LAB HEMETOLOGY METHOD 09/04/2024 10:54 AM [facility] Blood Venous blood specimen / Unknown Venipuncture / Unknown 09/04/2024 8:57 AM EDT 09/04/2024 8:57 AM EDT us Edna Verma MD LAB BLOOD ORDERABLES Final Resul t [facility] [address] [place] [address], [place] [phone] * Comprehensive metabolic panel (09/04/2024 8:57 AM EDT) Sodium 141 133 - 145 mmol/L LAB CHEMISTRY METHOD 09/04/2024 2:04 PM [facility] Potassium 4.3 3.5 - 5.5 mmol/L LAB CHEMISTRY METHOD 09/04/2024 2:04 PM [facility] Chloride 108 96 - 110 mmol/L LAB CHEMISTRY METHOD 09/04/2024 2:04 PM [facility] CO2 28 21 - 32 mmol/L LAB CHEMISTRY METHOD 09/04/2024 2:04 PM [facility] Anion Gap 5 3 - 11 LAB CHEMISTRY METHOD 09/04/2024 2:04 PM [facility] Glucose 87 70 - 100 mg/dL LAB CHEMISTRY METHOD 09/04/2024 2:04 PM [facility] BUN 12 5 - 25 mg/dL LAB CHEMISTRY METHOD 09/04/2024 2:04 PM [facility] Creatinine 0.66 0.50 - 1.10 mg/dL LAB CHEMISTRY METHOD 09/04/2024 2:04 PM [facility] eGFR 93 >=60 mL/min/1. 73m2 LAB CHEMISTRY METHOD 09/04/2024 2:04 PM [facility] Comment:Calculation based on the Chronic Kidney Disease Epidemiology Collaboration (CKD-EPI) equation refit without adjustment for race. BUN/Creatinine Ratio 18.2 LAB CHEMISTRY METHOD 09/04/2024 2:04 PM [facility] Calcium 9.5 8.5 - 10.5 mg/dL LAB CHEMISTRY METHOD 09/04/2024 2:04 PM EDT [facility] AST (SGOT) 21 10 - 42 unit/L LAB CHEMISTRY METHOD 09/04/2024 2:04 PM EDT [facility] ALT (SGPT) 26 10 - 60 unit/L LAB CHEMISTRY METHOD 09/04/2024 2:04 PM EDT [facility] Alkaline Phosphatase 81 42 - 121 unit/L LAB CHEMISTRY METHOD 09/04/2024 2:04 PM EDT [facility] Total Protein 7.0 6.0 - 8.0 g/dL LAB CHEMISTRY METHOD 09/04/2024 2:04 PM EDT [facility] Albumin 4.0 3.2 - 5.0 g/dL LAB CHEMISTRY METHOD 09/04/2024 2:04 PM EDT [facility] Total Bilirubin 0.8 0.0 - 1.4 mg/dL LAB CHEMISTRY METHOD 09/04/2024 2:04 PM EDT [facility] Blood Venous blood specimen / Unknown Venipuncture / Unknown 09/04/2024 8:57 AM EDT 09/04/2024 8:57 AM EDT us Edna Verma MD LAB BLOOD ORDERABLES Final Resul t [facility] [address] [place] [address], [place] [phone] * MG Mammo Digital Screening w Braeden bilat (08/29/2024 1:14 PM EDT) Anatomical Region Laterality Modality Breast Bilateral Mammography 08/30/2024 7:53 AM EDT Impressions 08/30/2024 7:57 AM EDT Benign. BI-RADS CATEGORY: 1 - NEGATIVE RECOMMENDATION: Screening bilateral mammogram is recommended in 1 year. Mammo Location: [facility], [address] [place] [address], [id number], . -------- FINAL REPORT -------- Dictated By: Mary Guevara Dictated Date: 08/30/2024 07:53 ET Assigned Physician: Mary Guevara Reviewed and Electronically Signed By: Mary Guevara Signed Date: 08/30/2024 07:57 ET Workstation ID: [id number] Transcribed By: Self Edit Transcribed Date: 08/30/2024 [...] is recommended in 1 year. Mammo Location: [facility], [address] [place] [address], [id number], . -------- FINAL REPORT -------- Dictated By: Mary Guevara Dictated Date: 08/30/2024 07:53 ET Assigned Physician: Mary Guevara Reviewed and Electronically Signed By: Mary Guevara Signed Date: 08/30/2024 07:57 ET Workstation ID: [id number] Transcribed By: Self Edit Transcribed Date: 08/30/2024 07:53 ET us Edna Verma MD IMG BI PROCEDURES Final Result * DXA BONE DENSITY STUDY 1+ SITS AXIAL SKEL (01/17/2024 10:30 AM EDT) Anatomical Region Laterality Modality Bone Densitometr y 02/11/2023 9:50 AM EST Narrative 01/17/2024 7:53 PM EDT Clinical history: other osteoporosis Scans of the lumbar spine and hips were performed on a [employer] fan beam bone densitometer. Bone mineral density [...] spine and hips were performed on a [employer] beam bone densitometer. Bone mineral density measurements [...] Result * Stool Based Tests (FOBT/FIT) (11/04/2023) [facility] Colorectal Cancer Screening: Stool Based Tests No interpretation , Abstracted Historical Provider HEALTH MAINTENANCE Final Result * Hepatitis C Screening (12/31/2020) [facility] Hepatitis C Screening Abstracted Historical Provider HEALTH MAINTENANCE Final Result from Last 3 Months or Most Recently Relevant to Health Maintenance Insurance [employer] MEDICARE Care Teams Flanging Roll Operator Relationship Specialty Start Date End Date Edna Verma MD [address] [place] [id number] PCP - General Internal Medicine 08/29/24
== END 2024-11-14 14:42 | disposition home or self-care (01) ==
LOC: HO.NEURO 14:41
PROVIDERS: PCP Internal Medicine; Visit Provider Psychiatry & Neurology Neurology
DX: G24.8 Other dystonia (principal)
CPT/HCPCS: 64616; 95874

== ENCOUNTER → 2024-11-14 15:00 | Outpatient (BNV) | payer OTHER, SELFPAY | PROVIDERS: PCP Internal Medicine; Visit Provider Psychiatry & Neurology Neurology | DX: G24.3 Spasmodic torticollis (principal) | CPT/HCPCS: 64616 ==

== ENCOUNTER 2025-01-08 08:31 | Outpatient (AMB) | payer OTHER, SELFPAY ==
--- NOTE | 2025-01-08 09:24 | A.OFFVIS_ITS ---
Intake Visit Reasons: 2m after botox Allergies No Known Allergies Allergy (Verified 10/30/24 07:52) Medication List - Last Reconciled 01/08/25 by Jacki Prater MD citalopram 20 mg PO DAILY diltiazem HCl CD 180 mg PO DAILY levothyroxine mcg PO onabotulinumtoxinA (Botox) 200 units IM .90 days HPI Comments Details: 2 months s/p Botox 11/06/24 with good results and no dysphagia. She has a history of hypothyroidism, hypertension and anxiety disorder who started to develop spontaneous head turning to the right about 15 years ago. She was diagnosed about 10 years ago with cervical dystonia in [place]. She has been getting Botox injections 200 units every 3-4 months. Her last Botox was 07/07/24. She was under the care of Dr. Law who has retired. She's leaving for [place] next week for 5 months and will get her next Botox a with her and wants to schedule the subsequent Botox for September 2024 in this office. Prior authorization for the Botox will be obtained. Her only complication with Botox sometimes is dysphagia. [facility] Medical History (Updated 11/06/24 @ 08:58 by Jacki Prater MD) Cervical dystonia Review of Systems Const Details: Sleep:? Difficulty getting to sleep?denies.? Difficulty maintaining sleep?denies? .? Urge to move legs?denies.? Teeth grinding?denies.? Shouting or Kicking during sleep?denies.? Abnormal behavior during sleep?denies.? Excessive sleep?denies.? Snoring?denies.? Daytime sleepiness?denies.? ?? General/Constitutional:? Change in appetite?denies.? Chills?denies.? Fatigue?denies.? Fever?denies .? Weight gain?denies.? Weight loss?denies.? ?? Ophthalmologic:? Blurred vision?denies.? Diminished visual acuity?denies.? ?? ENT:? Stuffiness?denies.? Decreased hearing?denies.? Dry mouth?denies.? Ear pain?denies.? Nosebleed?denies.? Ringing in the ears?denies.? Sinus pain?denies .? Sore throat?denies.? Swollen glands?denies.? ?? Endocrine:? Cold intolerance?denies.? Excessive thirst?denies.? Frequent urination? denies.? Heat intolerance?denies.? ?? Respiratory:? Shortness of breath?denies.? Chest pain?denies.? Cough?denies.? ?? Breast:? Breast lump?denies.? Nipple discharge?denies.? ?? Cardiovascular:? Chest pain at rest?denies.? Chest pain with exertion?denies.? Claudication?denies.? Dizziness?denies.? Fluid accumulation in the legs?denies.? Irregular heartbeat?denies.? Palpitations?denies.? ?? Gastrointestinal:? Abdominal pain?denies.? Constipation?denies.? Diarrhea?denies.? Difficulty swallowing?denies.? Heartburn?denies.? Nausea?denies.? Rectal bleeding?denies.? ?? Hematology:? Easy bruising?denies.? Prolonged bleeding?denies.? ?? Genitourinary:? Frequent urination?denies.? Urgency?denies.? Incontinence?denies.? Erectile Dysfunction?denies.? ?? Musculoskeletal:? Neck pain?admits.? Back pain?denies.? Muscle aches?denies.? Painful joints?denies.? Sciatica?denies.? Weakness?denies.? ?? Podiatric:? Difficulty walking?denies.? Foot numbness?denies.? ?? Neurologic:? Difficulty swallowing?denies.? Balance difficulty?denies.? Coordination? normal.? Difficulty speaking?denies.? Dizziness?denies.? Fainting?denies.? Gait abnormality?denies.? Headache?denies.? Loss of strength?denies.? Loss of use of extremity?denies.? Low back pain?denies.? Memory loss?denies.? Seizures?denies.? Tics?denies.? Tingling/Numbness?denies.? Transient loss of vision?denies.? Tremor?denies.? ?? Psychiatric:? Anxiety?denies.? Auditory/visual hallucinations?denies.? Delusions?denies .? Depressed mood?denies.? Stressors?denies.? Substance abuse?denies.? Suicidal thoughts?denies.? ?? Physical Exam Neuro Other: Neurological: ? Abnormal neurological findings:?Her default neck position is with the head turned to the right with slight downward chin deviation.? She has restriction of flexion, extension and lateral rotation, particularly in turning her head to the left side.? There is no dystonic tremor..? Mental Status:?alert and oriented X 3,?Normal attention, orientation, memory and affect.? Cranial Nerves:?Pupils are equal, round and reactive to light. Fundoscopy shows normal disc bilaterally. External occular muscles are intact. Visual villeda are full, no ptosis. Face is symmetrical, no facial weakness or droop. Facial sensations are normal. Tongue protrudes in midline. Palate elevates symmetrically. Shoulder shrugging is normal..? Motor Examination:?Normal muscle tone, bulk and strength,?No atrophy or fasciculations,?No drift of the extended upper extremities,?Deep tendon reflexes are 2+?,?Plantars are flexor?.? Motor Strength:? Proximal Muscles (out of 5): ?5 ? Distal Muscles (out of 5): ?5 ? Neck Flexors (out of 5): ?5 ? Neck Extensors (out of 5): ?5 ? Deltoid (out of 5): ?5 ? Biceps (out of 5): ?5 ? Triceps (out of 5): ?5 ? Serratus Anterior (out of 5): ?5 ? Wrist Extensors (out of 5): ?5 ? APB (out of 5): ?5 ? Finger Spread (out of 5): ?5 ? Ileopsoas (out of 5): ?5 ? Quadriceps (out of 5): ?5 ? Hamstrings (out of 5): ?5 ? Tibialis Anterior (out of 5): ?5 ? Peronei (out of 5): ?5 ? EDB (out of 5): ?5 ? Gastrocnemius (out of 5): ?5 ? Straight Leg Raising:?90 degrees.? Sensory Exam:?Normal light touch, temperature, pinprick, vibration and joint-position sensations?,?Rhomberg sign is absent.? Coordination:?no ataxia,?no titubation,?pvrlvb-aq-ttyi, fhnc-ifiw-qers test and rapid alternating movements were normal.? Gait Exam:?Within normal limits.? Cerebellar Signs:?Mnqdgd-xu-ydqj and szyv-re-ogod is normal,?no dysdiadochokinesia?.? Extrapyramidal System:?Focal dystonia of the cervical spine with head turning to the right . No tremor, rigidity with normal facial expressions,?No bradykinesia, no bradyphrenia. Normal arm swing and posture. No propulsion or retropulsion.? Speech:?Normal,?no dysphasia or dysarthria..? Mini Mental Status Exam: ? Level of Consciousness:?Alert.? Orientation:?Knows correct year, month, date, day and season,?Knows correct city, county and state. Knows correct location and floor.? Registration:?Able to register 3 objects.? Attention:?Serial 7's performed accurately.? Recall:?Able to recall 3 out of 3 objects.? Language:?Normal spontaneous speech, fluency, repetition,naming, comprehension, reading and writing.? Total Score:?30/30.? General Examination: ? GENERAL APPEARANCE:?normal,?in no acute distress.? HEAD:?normocephalic,?atraumatic.? EYES:?sclera non-icteric,?conjunctiva clear.? EARS:?auditory canal clear,?tympanic membrane intact, clear.? NOSE:?no lesions.? ORAL CAVITY:?gums normal,?mucosa moist,?no lesions.? THROAT:?clear.? NECK/THYROID:?no cervical lymphadenopathy,?thyroid normal,?neck supple, full range of motion,?no carotid bruit.? SKIN:?no rashes,?no significant birthmarks.? HEART:?S1, S2 normal,?no murmurs.? LUNGS:?clear anteriorly and posteriorly.? CHEST:?no gross rib deformity,?clear to auscultation.? BACK:?normal exam of spine.? EXTREMITIES:?no edema.? PERIPHERAL PULSES:?normal.? PSYCH:?alert, oriented,?cognitive function intact,?cooperative with exam.? 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
== END 2025-01-08 10:11 | disposition home or self-care (01) ==
LOC: HO.HSM 08:32
PROVIDERS: PCP Internal Medicine; Visit Provider Psychiatry & Neurology Neurology
DX: G24.3 Spasmodic torticollis (principal)
CPT/HCPCS: 99214

== ENCOUNTER → 2025-02-27 13:46 | Outpatient (BNV) | payer OTHER, SELFPAY | PROVIDERS: PCP Internal Medicine; Visit Provider Psychiatry & Neurology Neurology | DX: G24.3 Spasmodic torticollis (principal) | CPT/HCPCS: 64616; 95874 ==

== ENCOUNTER 2025-02-27 14:48 | Outpatient (REF) | payer OTHER, SELFPAY ==
--- NOTE | 2025-02-27 13:46 | EMG_ITS ---
Chief complaint: Cervical Dystonia Procedure done by:?Dr Prater Procedure done: EM[facility] Botox [facility] [place] [address] [facility]
--- OUTSIDE RECORDS SUMMARY | 2025-02-27 23:13 | XMS_ITS | Encounter Summary ---
Author Organization [facility] Prior to 01/20/2024 Address [address] [place] [address] Care Team Providers Care Manager Case Management Name Role Phone Milla Person MD Primary Care Provider Chanda vailaDave Gutierres PA-C Primary Care Provider Unavail able Edna Verma MD Primary Care Provider [phone] Reason for Visit * Reason Onset Date Comments TEST RESULTS 12/12/2017 Encounter Details Date Type Department Care Team Description 12/12/2017 Pt. Non Urgent Medical Question Medicine/Pediatrics - [address] [address] Dave Chung PA-C Social History Tobacco Use Types Packs/Day Years Used Date Smoking Tobacco: Former Cigarettes 1 30 Q uit: 2001 Smokeless Tobacco: Never Alcohol Use Standard Drinks/Week Comments No 0 (1 standard drink = 0.6 oz pur e alcohol) Sex Assigned at Date Recorded Female 10/02/2020 9:36 AM E DT Job Start Date Occupation Industry Not on file Not on file Not on file documented as of this encounter Progress Notes * Stephanie Martines L.P.N. - 12/12/2017 11:26 AM EDTFrom: Donna Samuels To: Dave Chung PA-C Sent: 12/12/2017 11:16 AM EDT Subject: Levothyroxine Good Morning - Thank you for your recent inquiry regarding my blood test results. I just wanted to let you know that I have been taking my levothyroxine on a daily basis. Please send any prescriptions to the [facility] in [place], [place]. Also, would having a slight increase in thyroid hormone levels have anything to do with the either skipped or rapid heart beat on occasion. Thank you! documented in this encounter Plan of Treatment Not on file documented as of this encounter Visit Diagnoses Not on filedocumented in this encounter Care Teams Manager Case Management Relationship Specialty Start Date End Date Milla Person MD PCP - General Internal Medicine 10/21/16 1 Dave Chung PA-C PCP - General Med/Peds 11/13/20 01/06/22 Edna Verma MD [address] [place] [address] PCP - General Internal Medicine 01/07/22 documented as of this encounter
--- OUTSIDE RECORDS SUMMARY | 2025-02-27 23:13 | XMS_ITS | Encounter Summary ---
Author Organization [facility] Prior to 01/20/2024 Address [address] [place] [address] Care Team Providers Care Manager Strategic Development Name Role Phone Milla Person MD Primary Care Provider Chanda vailable Dave Chung PA-C Primary Care Provider Unavail able Edna Verma MD Primary Care Provider [phone] Encounter Details Date Type Department Care Team Description 01/20/2017 [facility] Medical Records [address] [place] [id number] Abstract, Provider Social History Tobacco Use Types Packs/Day Years [...] on file documented as of this encounter Plan of Treatment Not on file documented as of this encounter Visit Diagnoses Not on filedocumented in this encounter Care Teams Manager Strategic Development Relationship Specialty Start Date End Date Milla Person MD PCP - General Internal Medicine 10/21/16 1 Dave Chung PA-C PCP - General Med/Peds 11/13/20 01/06/22 Edna Verma MD [address] [place] [address] PCP - General Internal Medicine 01/07/22 documented as of this encounter
--- OUTSIDE RECORDS SUMMARY | 2025-02-27 23:13 | XMS_ITS | Encounter Summary ---
Author Organization [facility] Prior to 01/20/2024 Address [address] [place] [address] Care Team Providers Care Director Of Logistics Name Role Phone Edna Verma MD Primary Care Provider [phone] Reason for Visit * Reason Comments E-prescribe Rx Request Encounter Details Date Type Department Care Team Description 01/05/2023 Refill Adult Medicine [address] [address] Edna Verma MD [address] [place] [address] [phone] E-prescribe Rx Request Social History Tobacco Use Types Packs/Day Years Used Date Smoking Tobacco: Former Cigarettes 1 30 Q uit: 2001 Smokeless Tobacco: Never Alcohol Use Standard Drinks/Week Comments Yes 0 (1 standard drink = 0.6 oz pur e alcohol) occ. Sex Assigned at Date Recorded Female 10/02/2020 9:36 AM E DT Job Start Date Occupation Industry Not on file Not on file Not on file documented as of this encounter Miscellaneous Notes * Telephone Encounter - Alaina Gray M.A. - 01/05/2023 9:13 AM EDT Last office visit 08/09/22 Next office visit 02/11/23 Will not have enough until seen. Please sign Lab Results Component Value Date ALB 3.7 09/15/2022 SGOT 22 09/15/2022 SGPT 25 09/15/2022 TBILI 0.3 09/15/2022 ALKPHOS 67 09/15/2022 TP 6.8 09/15/2022 * Telephone Encounter - Diannmaurice Elliottnett - 01/05/2023 9:03 AM EDT Patient would like script to be: E-PRESCRIBED/FAXED TO PHARMACY WHEN WAS THE PATIENT'S LAST APPOINTMENT IN ADULT MEDICINE? 08/09/2022 WHEN WAS THE LAST TIME THE PATIENT SAW THEIR PCP? Same as above Does patient have an upcoming appointment? Yes 02/11/2023 (THE MEDICATION REQUESTED IS ON THE MED LIST ABOVE) All of the medications requested were on the CURRENT MEDS list Did you check the Pharmacy information above?: YES Patient wants: 90 -day supply Is this a mail order prescription request ? NO If the refill is from a FAXED refill request what is the RX # listed on the fax? N/A Patients current insurance carrier is: Payor: [facility] MEDICARE FFS / Plan: [facility] MDCR-ADV PPO $0 [place] [id number] / Product Type: PPO [id number] documented in this encounter Plan of Treatment Not on file documented as of this encounter Visit Diagnoses Diagnosis Anxiety Anxiety state, unspecified documented in this encounter Care Teams Director Of Logistics Relationship Specialty Start Date End Date Edna Verma MD [address] [place] [address] PCP - General Internal Medicine 01/07/22 documented as of this encounter
--- OUTSIDE RECORDS SUMMARY | 2025-02-27 23:13 | XMS_ITS | Encounter Summary ---
Author Organization [facility] Prior to 01/20/2024 Address [address] [place] [address] Care Team Providers Care Composition Roofer Name Role Phone Milla Person MD Primary Care Provider Chanda vaDave Diaz PA-C Primary Care Provider Unavail able Edna Verma MD Primary Care Provider [phone] Encounter Details Date Type Department Care Team Description 01/26/2017 Transfer Records Medical Records [address] [place] [address] Abstract, Provider Social History Tobacco Use Types [...] on file documented as of this encounter Nursing Notes * Shoshana Woo - 01/26/2017 10:10 AM EST Transfer records received from [facility] sent to Mary Beth Vasquez RN commercial airline pilot. documented in this encounter Plan of Treatment Not on file documented as of this encounter Visit Diagnoses Not on filedocumented in this encounter Care Teams Composition Roofer Relationship Specialty Start Date End Date Milla Person MD PCP - General Internal Medicine 10/21/16 1 Dave Chung PA-C PCP - General Med/Peds 11/13/20 01/06/22 Edna Verma MD [address] [place] [address] PCP - General Internal Medicine 01/07/22 documented as of this encounter
--- OUTSIDE RECORDS SUMMARY | 2025-02-27 23:13 | XMS_ITS | Encounter Summary ---
Author Organization [facility] Prior to 01/20/2024 Address [address] [place] [address] Care Team Providers Care Commanding Officer Traffic Division Name Role Phone Edna Verma MD Primary Care Provider [phone] Encounter Details Date Type Department Care Team Description 11/09/2022 Telephone Adult Medicine [address] [address] Edna Verma MD [address] [place] [address] [phone] Social History Tobacco Use Types Packs/Day Years [...] encounter Miscellaneous Notes * Telephone Encounter - Marti Malagon M.A. - 11/09/2022 10:53 AM EDT Spoke with patient, she is currently taking 75mcg of levothyroxine, no having any constipation or fatigue and is happy that her hair is growing back in. She just received her 90 day supply of 75mcg this morning, she will repeat labs in late December, CPE scheduled for January. * Telephone Encounter - Marti Malagon M.A. - 11/09/2022 9:07 AM EDT LM for patient to return my call for results and further questions. Ext [phone]. * Telephone Encounter - Marti Malagon M.A. - 11/09/2022 9:06 AM EDT ----- Message from Edna Verma MD sent at 11/08/2022 8:01 PM EDT ----- Please advise patient that TSH is elevated , is she having any sympotms like fatigue or constipation, if not then would advise to conitnue with 75 of levohyroxine and repeat blood work in 2 months documented in this encounter Plan of Treatment Not on file documented as of this encounter Results * THYROID PROFILE W/TSH (01/12/2023 2:56 PM EDT) TSH CASCADE 1.36 0.40 - 4.00 uIU/ml 01/12/2023 7:10 PM EDT [facility] 01/12/2023 2:56 PM EDT 01/12/2023 2:56 PM EDT [facility]ative [facility] - 01/12/2023 7:10 PM EDT Release to patient->Immediate Edna Verma MD LAB [facility] documented in this encounter Visit Diagnoses Diagnosis Hypothyroidism, unspecified type- Primary Hypothyroidism, unspecified type documented in this encounter Care Teams Commanding Officer Traffic Division Relationship Specialty Start Date End Date Edna Verma MD [address] [place] [address] PCP - General Internal Medicine 01/07/22 documented as of this encounter
--- OUTSIDE RECORDS SUMMARY | 2025-02-27 23:13 | XMS_ITS | Encounter Summary ---
Author Organization [facility] Prior to 01/20/2024 Address [address] [place] [address] Care Team Providers Care Equine Intern Name Role Phone Edna Verma MD Primary Care Provider [phone] Reason for Visit * Reason Comments E-prescribe Rx Request Encounter Details Date Type Department Care Team Description 12/30/2022 Refill Adult Medicine [address] [address] Edna Verma MD [address] [place] [address] [phone] E-prescribe Rx Request Social History Tobacco Use [...] encounter Miscellaneous Notes * Telephone Encounter - Tessa Street PA-C - 12/30/2022 3:50 PM EDT Ok to fill. Bernie Gomez * Telephone Encounter - Dinah Lott M.A. - 12/30/2022 2:37 PM EDT Lab Results Component Value Date NA 141 09/15/2022 K 4.2 09/15/2022 CO2 27 09/15/2022 CL 108 09/15/2022 BUN 13 09/15/2022 CREAT 0.67 09/15/2022 GLU 100 09/15/2022 CA 9.2 09/15/2022 GFR 94 09/15/2022 Pending appt with pcp 02/11/23 Last appt 08/09/22 documented in this encounter Plan of Treatment Not on file documented as of this encounter Visit Diagnoses Not on filedocumented in this encounter Care Teams Equine Intern Relationship Specialty Start Date End Date Edna Verma MD [address] [place] [address] PCP - General Internal Medicine 01/07/22 documented as of this encounter
--- OUTSIDE RECORDS SUMMARY | 2025-02-27 23:13 | XMS_ITS | Clinical Summary ---
Author Organization [facility] [address] Address [address] [place] [address] Phone Care Team Providers Care Manager Sql Name Role Phone Edna Verma MD Primary Care Provider [phone] Allergies No known active allergies Medications glucosamine/chond roitin/C/Angelo (GLUCOSAMINE 1500 COMPLEX ORAL) Take by mouth daily. Active calcium carbonate-vitamin D (Oyster Shell Calcium-Vit D3) 500 mg-5 mcg (200 unit) per tablet Take by mouth daily. Active multivit-min/iron /folic acid/K (ADULTS MULTIVITAMIN ORAL) Take by mouth daily. Active BIOTIN ORAL Take by mouth daily. Active elderberry fruit 350 mg capsule Take by mouth. Active TURMERIC ORAL Take by mouth. Active citalopram (CeleXA) 20 mg tablet TAKE 1 TABLET BY MOUTH DAILY 90 tablet 1 5 Active dilTIAZem CD (CARDIZEM CD) 180 mg 24 hr capsule Take 1 capsule (180 mg total) by mouth 1 (one) time each day. 90 capsule 1 5 Active levothyroxine (SYNTHROID, LEVOTHROID) 75 mcg tablet TAKE 1 TABLET BY MOUTH ONCE DAILY TUESDAY THROUGH TUESDAY , THEN 2 TABLETS BY MOUTH ON TUESDAY AND TUESDAY 114 tablet 1 5 Active Active Problems Problem Noted Date Diagnosed Date Anxiety 12/29/2023 Cervical dystonia 12/29/2023 Overview (12/29/2023): Gets botox injections with [facility] and a doctor in [place] (Dr. Austin in [place]) See medically for injections with Dr. Valdez [...] and differential; Future Rosacea 02/04/2017 Scoliosis 01/18/2017 Immunizations Immunization Administration Dates Next Due Influenza trivalent, 0.5mL ( Fluad) 65yo and older 12/06/2023 Influenza trivalent, 0.5mL ( Fluzone High-dose) 65yo and older 12/08/2022,12/04/2020,12/05/2018 Influenza trivalent, with pr eservative (Fluzone; Afluria) 6mo and older 12/05/2017 Influenza, Unspecified 12/09/2021,12/03/2016 [employer] SARS-CoV-2 COVID-19, mRNA, LNP-S, preservative free 12/08/2022,12/09/2021,06/24/2021,12/21,05/29/2020,05/07/2020 Pneumococcal conjugate 13 va lent (Prevnar 13, PCV13) 2mo and older 08/23/2014 Pneumococcal polysaccharide 23 valent (Pneumovax 23) 2yo and older 03/01/2022,12/29/2015 Tdap Tetanus diptheria acell ular pertussis (Boostrix; Adacel) 7yo and older 06/02/2022,08/18/2012 Surgical History Surgery Date Site/Laterality Comments KNEE ARTHROSCOPY 2010 Right PROCEDURE: RI ARTHROSCOPY KNEE DIAGNOSTIC W/WO SYNOVIAL BX SPX [...] 1 Claudia Chacon Arthritis Sister 2 Radha Jessamine Diabetes Sister 2 Radha Jessamine Colon cancer Neg Hx Heart attack Neg Hx Ovarian cancer Neg Hx Pancreatic cancer Neg Hx Prostate cancer Neg Hx Stroke Neg Hx Uterine cancer Neg Hx Relation Name Status Comments Mother Lavern Cox Other mat aunt Sister 1 Claudia Chacon Sister 2 Radha Johnson Social History Tobacco Use Types Packs/Day Years Used Date Smoking Tobacco: Former Cigarettes 1 Q uit: 03/21/2001 Smokeless Tobacco: Never Tobacco [...] for your loved ones. For example, child and family counselor or elderly care for an older adult? [...] Date Recorded What is your living situation? Unrecognized valu e 02/07/2024 Comments No Sex and Gender Information Value [...] 8:00 AM EST Office Visit Adult Medicine [address] [phone] Edna Verma MD [address] [place] [address] 08/30/2025 11:30 AM EDT Appointment Radiology Department - [address] [phone] Health Maintenance Due Date Last Done Comments Zoster Vaccines (2 of 3) 10/17/2013 08/22/2013 Colorectal Cancer Screening: Stool Based Tests (FOBT/FIT) 11/03/2024 11/04/2023 COVID-19 Vaccine ( season) 2024 12/06/2023, 12/13/2022, 12/08/2022, Additional history exists Influenza Vaccine (#1) 2024 , 05/03/2023, 12/08/2022, Additional history exists Social Influencers of Health Screening 02/06/2025 02/07/2024 Medicare Annual Wellness Visit 02/08/2025 02/09/2024 Hypertension/CHF/CAD Annual BMP Blood Test 09/04/2025 09/04/2024, 02/10/2024, 08/12/2023, Additional history exists Falls Risk Assessment 09/27/2025 09/27/2024, 024 Osteoporosis Screening (Bone Density Screening) 01/16/2026 01/17/2024, 01/17/2024, 03/19/2020, Additional history exists Breast Cancer Screening 08/29/2026 08/30/19, 08/19/2023, 08/19/2023, Additional history exists RSV Immunization [...] Procedure Name Priority Date/Time Associated Diagnosis Comments COMPREHENSIVE METABOLIC PANEL Routine 09/04/2024 8:57 AM EDT Essential hypertension LIPID PANEL WITH REFLEX TO DIRECT LDL Routine 09/04/2024 8:57 AM EDT Essential hypertension MG MAMMO DIGITAL SCREENING W ARMINDA BILAT Routine 08/29/2024 1:14 PM EDT Encounter for screening mammogram for breast cancer DXA BONE DENSITY STUDY 1+ SITS AXIAL SKEL Routine 01/17/2024 10:30 AM EDT Encounter for screening for osteoporosis HM STOOL BASED TEST Routine 11/04/2023 HEPATITIS C SCREENING Routine 12/31/2020 from Last 3 Months or Most Recently Relevant to Health Maintenance Results * Lipid panel with reflex to direct [...] t [facility] [address] [place] [address], * Comprehensive metabolic panel (09/04/2024 8:57 AM EDT) Sodium 141 133 - 145 mmol/L LAB CHEMISTRY METHOD 09/04/2024 2:04 PM [facility] Potassium 4.3 3.5 - 5.5 mmol/L LAB CHEMISTRY METHOD 09/04/2024 2:04 PM [facility] Chloride 108 96 - 110 mmol/L LAB CHEMISTRY METHOD 09/04/2024 2:04 PM [facility] CO2 28 21 - 32 mmol/L LAB CHEMISTRY METHOD 09/04/2024 2:04 PM [facility] Anion Gap 5 3 - 11 LAB CHEMISTRY METHOD 09/04/2024 2:04 PM [facility] Glucose 87 70 - 100 mg/dL LAB CHEMISTRY METHOD 09/04/2024 2:04 PM [facility] BUN 12 5 - 25 mg/dL LAB CHEMISTRY METHOD 09/04/2024 2:04 PM [facility] Creatinine 0.66 0.50 - 1.10 mg/dL LAB CHEMISTRY METHOD 09/04/2024 2:04 PM [facility] eGFR 93 >=60 mL/min/1. 73m2 LAB CHEMISTRY METHOD 09/04/2024 2:04 PM [facility] Comment:Calculation based on the Chronic Kidney Disease Epidemiology Collaboration (CKD-EPI) equation refit without adjustment for race. BUN/Creatinine Ratio 18.2 LAB CHEMISTRY METHOD 09/04/2024 2:04 PM [facility] Calcium 9.5 8.5 - 10.5 mg/dL LAB CHEMISTRY METHOD 09/04/2024 2:04 PM [facility] AST (SGOT) 21 10 - 42 unit/L LAB CHEMISTRY METHOD 09/04/2024 2:04 PM [facility] ALT (SGPT) 26 10 - 60 unit/L LAB CHEMISTRY METHOD 09/04/2024 2:04 PM [facility] Alkaline Phosphatase 81 42 - [...] t [facility] [address] [place] [address], [place] [phone] * MG Mammo Digital Screening w Arminda bilat (08/29/2024 1:14 PM EDT) Anatomical Region Laterality Modality Breast Bilateral Mammography 08/30/2024 7:53 AM EDT Impressions 08/30/2024 7:57 AM EDT Benign. BI-RADS CATEGORY: 1 - NEGATIVE RECOMMENDATION: Screening bilateral mammogram is recommended in 1 year. Mammo Location: [facility], [address] [place] [address], [address], . -------- FINAL REPORT -------- Dictated By: Mary Guevara Dictated Date: 08/30/2024 07:53 ET Assigned Physician: Mary Guevara Reviewed and Electronically Signed By: Mary Guevara Signed Date: 08/30/2024 07:57 ET Workstation ID: [id number] Transcribed By: Self Edit Transcribed Date: 08/30/2024 [...] is recommended in 1 year. Mammo Location: [facility], [address] [place] [address], [address], . -------- FINAL REPORT -------- Dictated By: Mary Guevara Dictated Date: 08/30/2024 07:53 ET Assigned Physician: Mary Guevara Reviewed and Electronically Signed By: Mary Guevara Signed Date: 08/30/2024 07:57 ET Workstation ID: [id number] Transcribed By: Self Edit Transcribed Date: 08/30/2024 07:53 ET us Edna Verma MD IMG BI PROCEDURES Final Result * DXA BONE DENSITY STUDY 1+ SITS AXIAL SKEL (01/17/2024 10:30 AM EDT) Anatomical Region Laterality Modality Bone Densitometr y 02/11/2023 9:50 AM EST Narrative 01/17/2024 7:53 PM EDT Clinical history: other osteoporosis Scans of the lumbar spine and hips were performed on a [employer] fan beam bone densitometer. Bone mineral density [...] spine and hips were performed on a [employer]/DiomicsigRe-APPfan beam bone densitometer. Bone mineral density measurements [...] Result * Stool Based Tests (FOBT/FIT) (11/04/2023) [facility] Colorectal Cancer Screening: Stool Based Tests No interpretation , Abstracted Historical Provider HEALTH MAINTENANCE Final Result * Hepatitis C Screening (12/31/2020) [facility] Hepatitis C Screening Abstracted [facility] Provider HEALTH MAINTENANCE Final Result from Last 3 Months or Most Recently Relevant to Health Maintenance Insurance [employer] MEDICARE Care Teams Manager Sql Relationship Specialty Start Date End Date Edna Verma MD [address] [place] [address] [place] [phone] PCP - General Internal Medicine 08/29/24
--- OUTSIDE RECORDS SUMMARY | 2025-02-27 23:13 | XMS_ITS | Encounter Summary ---
Author Organization [facility] Prior to 01/20/2024 Address [address] [place] [address] Care Team Providers Care Plant Health Manager Name Role Phone Edna Verma MD Primary Care Provider [phone] Reason for Visit * Reason Comments E-prescribe Rx Request Encounter Details Date Type Department Care Team Description 01/05/2023 Refill Adult Medicine [address] PA-C [address] [place] [address] [phone] E-prescribe Rx Request Social History Tobacco Use [...] Encounter - Alaina Gray M.A. - 01/05/2023 9:14 AM EDT Last office visit 08/09/22 Next office visit 02/11/23 Will not have enough until seen, please sign Lab Results Component Value Date TSH 6.89 11/01/2022 * Telephone Encounter - Diann Diego - 01/05/2023 9:00 AM EDT Patient would like script to [...] N/A Patients current insurance carrier is: Payor: [facility] MEDICARE FFS / Plan: [facility] MDCR-ADV PPO $0 [place] [id number] / Product Type: PPO [id number] documented in this encounter Plan of Treatment Not on file documented as of this encounter Visit Diagnoses Not on filedocumented in this encounter Care Teams Plant Health Manager Relationship Specialty Start Date End Date Edna Verma MD [address] [place] [address] [phone] PCP - General Internal Medicine 01/07/22 documented as of this encounter
--- OUTSIDE RECORDS SUMMARY | 2025-02-27 23:13 | XMS_ITS | Encounter Summary ---
Author Organization [facility] Prior to 01/20/2024 Address [address] [place] [address] Care Team Providers Care Panel Instrument Repairer Name Role Phone Edna Verma MD Primary Care Provider [phone] Encounter Details Date Type Department Care Team Description 09/07/2022 Event Promoter Report Medical Records [address] [place] [address] Doug Law MD Social History Tobacco Use Types Packs/Day Years Used Date Smoking Tobacco: Former Cigarettes 1 30 Q uit: 2001 Smokeless Tobacco: Never Alcohol Use Standard Drinks/Week Comments Yes 0 (1 standard drink = 0.6 oz pur e alcohol) occ. Sex Assigned at Date Recorded Female 10/02/2020 9:36 AM E DT Job Start Date Occupation Industry Not on file Not on file Not on file COVID-19 Exposure Response Date Recorded In the last 10 days, have tara u been in contact with someone who was confirmed or suspected to have Coronavirus/COVID-19? No / Unsure 08/12/2022 1:15 PM EDT documented as of this encounter Plan of Treatment Not on file documented as of this encounter Visit Diagnoses Not on filedocumented in this encounter Care Teams Panel Instrument Repairer Relationship Specialty Start Date End Date Edna Verma MD [address] [place] [address] PCP - General Internal Medicine 01/07/22 documented as of this encounter
--- OUTSIDE RECORDS SUMMARY | 2025-02-27 23:14 | XMS_ITS | Encounter Summary ---
Author Organization [facility] Prior to 01/20/2024 Address [address] [place] [address] Care Team Providers Care Supervisor Conditioning Yard Name Role Phone Milla Person MD Primary Care Provider Chanda vailable Dave Chung PA-C Primary Care Provider Unavail able Edna Verma MD Primary Care Provider [phone] Encounter Details Date Type Department Care Team Description 11/13/2018 Carpet Layer Helper Report Medical Records [address] [place] [phone] Dick Valdez MD Social History Tobacco Use Types Packs/Day [...] on filedocumented in this encounter Care Teams Supervisor Conditioning Yard Relationship Specialty Start Date End Date Milla Person MD PCP - General Internal Medicine 10/21/16 1 Dave Chung PA-C PCP - General Med/Peds 11/13/20 01/06/22 Edna Verma MD [address] [place] [address] PCP - General Internal Medicine 01/07/22 documented as of this encounter
--- OUTSIDE RECORDS SUMMARY | 2025-02-27 23:14 | XMS_ITS | Encounter Summary ---
Author Organization [facility] Prior to 01/20/2024 Address [address] [place] [address] Care Team Providers Care Jazz Singer Name Role Phone Milla Person MD Primary Care Provider Chanda vaDave Diaz PA-C Primary Care Provider Unavail able Edna Verma MD Primary Care Provider [phone] Encounter Details Date Type Department Care Team Description 10/01/2018 Refill Medicine/Pediatrics [address] [id number] Milla Person MD Social History Tobacco Use Types Packs/Day [...] encounter Miscellaneous Notes * Telephone Encounter - Rebecca Connors M.A. - 10/02/2018 8:13 AM EDTFrom: Donna Samuels To: Milla Person MD Sent: 10/01/2018 8:31 AM EDT Subject: Medication Renewal Request Original authorizing provider: MD Donna Auguste would like a refill of the following medications: levothyroxine (SYNTHROID, LEVOTHROID) 88 MCG tablet [Milla Person MD] Preferred pharmacy: [facility] - [address] Comment: [facility] I just ordered the last refills of my Levothyroxine, Diltiazem and Citalopram medications today. There are no more refills remaining in the [facility] website. Could you please update some refills in the website? Thank you! Medication renewals requested in this message routed to other providers: citalopram (CELEXA) 20 MG tablet [Dave Chung PA-C] diltiazem (CARTIA XT) 120 MG 24 hr capsule [Dave Chung PA-C] Other - see comments for explanation documented in this encounter Plan of Treatment Not on file documented as of this encounter Visit Diagnoses Not on filedocumented in this encounter Care Teams Jazz Singer Relationship Specialty Start Date End Date Milla Person MD PCP - General Internal Medicine 10/21/16 1 Dave Chung PA-C PCP - General Med/Peds 11/13/20 01/06/22 Edna Verma MD [address] [place] [address] PCP - General Internal Medicine 01/07/22 documented as of this encounter
--- OUTSIDE RECORDS SUMMARY | 2025-02-27 23:14 | XMS_ITS | Encounter Summary ---
Author Organization [facility] Prior to 01/20/2024 Address [address] [place] [address] Care Team Providers Care Cream Dumper Name Role Phone Edna Verma MD Primary Care Provider [phone] Encounter Details Date Type Department Care Team Description 08/09/2023 Orders Only Radiology - [place] [address] [place] [id number] Radiology, Authorizing Social History Tobacco Use Types Packs/Day Years Used Date Smoking Tobacco: Former Cigarettes 1 30 Q uit: 2001 Smokeless Tobacco: Never Alcohol Use Standard Drinks/Week Comments Yes 0 (1 standard drink = 0.6 oz pur e alcohol) occassionally Sex Assigned at Date Recorded Female 10/02/2020 9:36 AM E DT Job Start Date Occupation Industry Not on file Not on file Not on file documented as of this encounter Plan of Treatment Not on file documented as of this encounter Visit Diagnoses Not on filedocumented in this encounter Care Teams Cream Dumper Relationship Specialty Start Date End Date Edna Verma MD [address] [place] [address] PCP - General Internal Medicine 01/07/22 documented as of this encounter
--- OUTSIDE RECORDS SUMMARY | 2025-02-27 23:14 | XMS_ITS | Encounter Summary ---
Author Organization [facility] Prior to 01/20/2024 Address [address] [place] [address] Care Team Providers Care Newspaper Inserter Name Role Phone Milla Person MD Primary Care Provider Chanda vailable Dave Chung PA-C Primary Care Provider Unavail able Edna Verma MD Primary Care Provider [phone] Encounter Details Date Type Department Care Team Description 04/19/2018 Signaler Report Medical Records [address] [place] [id number] Dick Valdez MD Social History Tobacco Use [...] on filedocumented in this encounter Care Teams Newspaper Inserter Relationship Specialty Start Date End Date Milla Person MD PCP - General Internal Medicine 10/21/16 1 Dave Chung PA-C PCP - General Med/Peds 11/13/20 01/06/22 Edna Verma MD [address] [place] [phone] PCP - General Internal Medicine 01/07/22 documented as of this encounter
--- OUTSIDE RECORDS SUMMARY | 2025-02-27 23:14 | XMS_ITS | Clinical Summary ---
Author Organization [facility] Prior to 01/20/2024 Address [address] [place] [address] Care Team Providers Care Corporate Risk Analyst Name Role Phone Edna Verma MD Primary Care Provider [phone] Allergies No known active allergies Medications Medication Sig Dispensed Refills Start Date End Date Status BIOTIN OR Take by mouth daily. 0 Active Glucosamine-Chondroi t-Vit C-Mn (GLUCOSAMINE 1500 COMPLEX OR) Take by mouth daily. 0 Active Calcium Carbonate-Vitamin D (OSCAL 500/200 D-3 OR) Take by mouth daily. 0 Active Multiple Vitamins-Minerals (Multivitamin Adults 50+) Tab Take by mouth daily. 0 Active citalopram (CELEXA) 20 MG tabletIndications:An xiety Take 1 Tablet by mouth daily. 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 Austin in [place]) See medically for injections with Dr. Valdez Anxiety Resolved Problems Problem Noted Date Resolved Date Shingles 08/31/2017 10/30/2019 Immunizations Name Administration Dates Next Due COVID-19 (Pfizer) 12/09/2021,06/24/2021 COVID-19 (Pfizer) Pt Reported 12/08/2022 ,12/21/2020,05/29/2020,05/07 Influenza (> 6 Months) 12/05/2017 Influenza Flu (PT Reported) 12/09/2021, 7 Influenza vaccine high dose age 65 and over 12/08/2022,12/04/2020,12/05/2018 Pneumoccoccal(Adult) Polysac charide PPSV23 03/01/2022,12/29/2015 Pneumococcal Conjugate PCV-13 08/23/2014 Tdap 06/02/2022,08/18/2012 Family History Medical History Relation Name Comments Arthritis Mother CA Breast Other mat aunt Arthritis Sister Cancer of the Lung Sister Diabetes Sister 2 sisters with diabetes; 1 with CA CA Colon Negative Hx CA Ovarian Negative Hx Cancer of the Pancreas Negative Hx Cancer of the Prostate Negative Hx CA Negative Hx Stroke Negative Hx Uterine Cancer Negative Hx Relation Name Status Comments Mother Other mat aunt Sister Social History Tobacco Use Types Packs/Day Years Used Date Smoking Tobacco: Former Cigarettes 1 30 Q uit: 2001 Smokeless Tobacco: Never Tobacco Cessation:Counseling Given: Not Answered Alcohol Use Standard Drinks/Week Comments Yes 0 (1 standard drink = 0.6 oz pur e alcohol) occassionally Sex Assigned at Date Recorded Female 10/02/2020 9:36 AM E DT Job Start Date Occupation Industry Not on file Not on file Not on file Last Filed Vital Signs Vital Sign Reading Time Taken Comments Blood Pressure 138/72 08/16/2023 10:06 AM EDT Pulse 82 08/16/2023 9:41 AM EDT Temperature 36.4 C (97.5 F) 08/16/2023 9:41 AM EDT Respiratory Rate 14 08/16/2023 9:41 AM EDT Oxygen Saturation 97% 02/11/2023 9:41 AM EST Inhaled Oxygen Concentration - - Weight 64.9 kg (143 lb) 08/16/2023 9:41 AM EDT Height 154.9 cm (5' 1 ) 08/16/2023 9:41 AM EDT Body Mass Index 27.02 08/16/2023 9:41 AM EDT Plan of Treatment Health Maintenance Due Date Last Done Comments SHINGLES VACCINE (1 of 2) 12/26/2001 BMI CHECK/ADVISE 03/21/2024 02/11/2023, , 03/01/2022, Additional history exists MAMMOGRAM 08/18/2024 08/19/2023, 07/20, 01/26/2021, Additional history exists COLON CANCER SCREEN WITH STO OL CARD 11/03/2024 11/04/2023 (Completed) Covid-19 Vaccine (2022-04 4 season) 2024 12/08/2022, 12/09/2021, 06/24/2021, Additional history exists INFLUENZA (#1) 2024 12/08/2022, 11/20, 12/04/2020, Additional history exists BONE DENSITY SCREENING 01/16/2026 , 03/19/2020, 11/01/2017 CHOLESTEROL SCREENING 08/11/2028 08/12/2023 , 02/08/2023, 09/15/2022, Additional history exists DTAP/TDAP/TD (3 - Td or Tdap) 06/02/2032 06/02/2022, 08/18/2012 HEPATITIS C SCREENING Completed 12/31/2020 PNEUMOCOCCAL VACCINE Completed 03/01/2022, 12/29/2015, 08/23/2014 Care Teams Corporate Risk Analyst Relationship Specialty Start Date End Date Edna Verma MD [address] [place] [id number] PCP - General Internal Medicine 01/07/22
--- OUTSIDE RECORDS SUMMARY | 2025-02-27 23:14 | XMS_ITS | Encounter Summary ---
Author Organization [facility] Prior to 01/20/2024 Address [address] [place] [address] Care Team Providers Care Gate Services Supervisor Name Role Phone Edna Verma MD Primary Care Provider [phone] Encounter Details Date Type Department Care Team Description 06/11/2022 Pt. Non Urgent Medical Question Adult Medicine [address] [address] Sulma Bettencourt PA-C [address] [place] [address] [id number] Social History Tobacco Use Types Packs/Day Years [...] on filedocumented in this encounter Care Teams Gate Services Supervisor Relationship Specialty Start Date End Date Edna Verma MD [address] [place] [id number] PCP - General Internal Medicine 01/07/22 documented as of this encounter
--- OUTSIDE RECORDS SUMMARY | 2025-02-27 23:14 | XMS_ITS | Encounter Summary ---
Author Organization [facility] Prior to 01/20/2024 Address [address] [place] [address] Care Team Providers Care Terrazzo Worker Helper Name Role Phone Edna Verma MD Primary Care Provider [phone] Encounter Details Date Type Department Care Team Description 03/03/2022 Business Doc Medical Records [address] [place] [phone] Abstract, Provider Social History Tobacco Use Types [...] Recorded In the last 10 days, have yo u been in contact with someone who was confirmed or suspected to have Coronavirus/COVID-19? No / Unsure 03/01/2022 10:37 AM EST documented as of this encounter Plan of Treatment Not on file documented as of this encounter Visit Diagnoses Not on filedocumented in this encounter Care Teams Terrazzo Worker Helper Relationship Specialty Start Date End Date Edna Verma MD [address] [place] [address] PCP - General Internal Medicine 01/07/22 documented as of this encounter
--- OUTSIDE RECORDS SUMMARY | 2025-02-27 23:14 | XMS_ITS | Encounter Summary ---
Author Organization [facility] Prior to 01/20/2024 Address [address] [place] [address] Care Team Providers Care Benefits Officer Name Role Phone Edna Verma MD Primary Care Provider [phone] Encounter Details Date Type Department Care Team Description 01/08/2022 Robotics Engineer Report Medical Records [address] [place] [phone] Doug Law MD Social History Tobacco Use [...] on filedocumented in this encounter Care Teams Benefits Officer Relationship Specialty Start Date End Date Edna Verma MD [address] [place] [address] PCP - General Internal Medicine 01/07/22 documented as of this encounter
--- OUTSIDE RECORDS SUMMARY | 2025-02-27 23:14 | XMS_ITS | Encounter Summary ---
Author Organization [facility] Prior to 01/20/2024 Address [address] [place] [address] Care Team Providers Care Mis Manager Name Role Phone Dave Chung PA-C Primary Care Provider Unavail able Edna Verma MD Primary Care Provider [phone] Encounter Details Date Type Department Care Team Description 08/12/2021 Coat Finisher Report Medical Records [address] [place] [id number] Dick Valdez MD Social History Tobacco Use [...] on filedocumented in this encounter Care Teams Mis Manager Relationship Specialty Start Date End Date Dave Chung PA-C PCP - General Med/Peds 11/13/20 01/06/22 Edna Verma MD [address] [place] [address] PCP - General Internal Medicine 01/07/22 documented as of this encounter
--- OUTSIDE RECORDS SUMMARY | 2025-02-27 23:14 | XMS_ITS | Encounter Summary ---
Author Organization [facility] [facility] Prior to 01/20/2024 Address [address] [place] [address] Care Team Providers Care Insole Buffer Name Role Phone Milla Person MD Primary Care Provider Chanda Dave Cantor PA-C Primary Care Provider Unavail able Edna Verma MD Primary Care Provider [phone] Encounter Details Date Type Department Care Team Description 04/03/2020 Release of Information Medical Records [address] [place] [address] Abstract, Provider Social History Tobacco Use Types [...] Exposure Response Date Recorded In the last month, have you been in contact with someone who was confirmed or suspected to have Coronavirus / COVID-19? No / Unsure 03/19/2020 12:52 PM EST documented as of this encounter Nursing Notes * Kami Ibanez - 04/03/2020 12:34 PM EST AUTHORIZATION TO OBTAIN MEDICAL RECORDS MAILED TO [facility] documented in this encounter Plan of Treatment Not on file documented as of this encounter Visit Diagnoses Not on filedocumented in this encounter Care Teams Insole Buffer Relationship Specialty Start Date End Date Milla Person MD PCP - General Internal Medicine 10/21/16 1 Dave Chung PA-C PCP - General Med/Peds 11/13/20 01/06/22 Edna Verma MD [address] [place] [id number] PCP - General Internal Medicine 01/07/22 documented as of this encounter
== END 2025-02-27 14:49 | disposition home or self-care (01) ==
LOC: HO.NEURO 14:48
PROVIDERS: PCP Internal Medicine; Visit Provider Psychiatry & Neurology Neurology
DX: G24.3 Spasmodic torticollis (principal)
CPT/HCPCS: 64616; 95874; J0585